=== PATIENT | female | born 1985 ===

== ENCOUNTER 2017-10-14 17:53 | Inpatient (IN) | payer SELFPAY ==
[2017-10-14] MEDS ORDERED: ceFAZolin 2 GM in Sodium Chloride 0.9% 100 ML IVPB ONE (20:22)
[2017-10-14] MEDS ORDERED: Lactated Ringer's 1,000 ML IV ONE (20:22)
[2017-10-14 20:52] LABS: BASO % 0.3 % (0.0-2.0); EOS % 0.4 % (0.0-4.0); HEMOGLOBIN 12.4 g/dL (11.0-16.0); LYMPH % 17.9 % (20.0-40.0); MEAN CELL VOLUME 90.1 fL (81.0-99.0); MEAN CORPUSCULAR HEMOGLOBIN 30.4 pg (27.0-31.0); MEAN CORPUSCULAR HGB CONC 33.7 g/dL (33.0-37.0); MEAN PLATELET VOLUME 10.8 fL (7.2-11.7); MONO # 0.8 K/uL (0.0-0.8); MONO % 7.4 % (0.0-10.0); NEUT # 8.4 K/uL (1.8-7.0); NRBC % 0.1 % (0.0-2.0); RBC 4.09 Mil/uL (3.80-5.20); RED CELL DISTRIBUTION WIDTH 13.9 % (11.5-14.5); WHITE BLOOD COUNT 11.3 K/uL (4.8-10.8)
[2017-10-14] MEDS ORDERED: Sodium Citrate/Citric Acid 15 ml Sol PO ONE (21:00)
[2017-10-14 21:02] LABS: SQUAMOUS EPITHIAL 5 /hpf (0-5); URINE BACTERIA RARE (<OCC); URINE BILIRUBIN NEGATIVE (NEGATIVE); URINE BLOOD NEGATIVE (NEGATIVE); URINE CLARITY Hazy (Clear); URINE COLOR Yellow (YELLOW); URINE GLUCOSE (UA) 3+ mg/dL (Normal); URINE LEUKOCYTE ESTERASE TRACE Leu/uL (Negative); URINE PROTEIN NEGATIVE (NEGATIVE); URINE UROBILINOGEN NORMAL mg/dL (0.2-1.0)
[2017-10-14] MEDS ORDERED: Sodium Citrate/Citric Acid 15 ml Sol ONE (21:59)
[2017-10-14] MEDS ORDERED: Morphine 1 mg/ml preservative-free Inj(Duramorph) ONE (22:09)
[2017-10-14] MEDS ORDERED: ePHEDrine 50 mg/ml Inj ONE (22:10)
--- NOTE | 2017-10-14 22:28 | OBHP ---
Datetime: 10/14/2017 18:30 IP Adm Impression: , intrauterine ; No Active Labor; Intact Membranes; Demise IP Admit Plan: Admit to unit; Initiate demise protocol Admit Comment, IP Provider: 32 yo female with an IUP at 34 weeks/ Hx of Previous C/S Sent from Clinic for admission after Dx'ed with Demise by an MFM US and report sent Pt and her state that she still feeling FM OB US ordered here and awaiting result + GDM and on Glyburide. FSBS on arrival 267 and admit to eating about 1 hr after arrival. Pelvic Type - PN: Adequate Extremities - PN: Normal Abdomen - PN: Normal Back - PN: Normal Breast - PN: Not Done Lungs - PN: Normal Heart - PN: Normal Thyroid - PN: Normal Neurologic - PN: Normal HEENT - PN: Normal General - PN: Normal Presentation-Admit: Vertex FHR - Baseline A Provider: 0 Membranes, Provider: Intact Contraction Comments Provider: None Gestation - Est Wks by US: 34.0 EGA AdmitDate IP: 34.4 Vital Signs Provider: Reviewed IP Chief Complaint: evaluation Dilatation, Provider: 0 Effacement, Provider: 0 Station, Provider: floating Genitourinary Exam: Normal DTRs - PN: Normal
[2017-10-14] MEDS ORDERED: Oxytocin 20 units in LR 2,000 ML IV ONE (22:31)
[2017-10-14] MEDS ORDERED: Midazolam 2 MG/2 ML VIAL ONE (23:01)
--- NOTE | 2017-10-14 23:56 | OBADHP ---
Datetime: 10/14/2017 21:44 IP Chief Complaint Other: Demise Admit Comment, IP Provider: Verified demise per US x 2 and parents again aware Demise at 34 weeks and no signs of labor Uncontrolled Gestational Diabetes Previous C/S x 1 and an unfavorable cervix. Risks of and repeat C/S fully reviewed with the patient and FOB and they requested a repeat C /S. Consent signed and will proceed with Repeat C/S Repeat FS BS on mother was 148. Pelvic Type - PN: Adequate Extremities - PN: Normal Abdomen - PN: Normal Back - PN: Normal Breast - PN: Not Done Lungs - PN: Normal Heart - PN: Normal Thyroid - PN: Normal Neurologic - PN: Normal HEENT - PN: Normal General - PN: Normal IP Fetus A Comments: demise confirmed by US and verbal report from Radiologist to myself Vital Signs Provider: Reviewed Genitourinary Exam: Normal DTRs - PN: Normal IP Adm Impression: , intrauterine IP Admit Plan: Admit to unit; Initiate demise protocol Datetime: 10/14/2017 18:30 Presentation-Admit: Vertex FHR - Baseline A Provider: 0 Membranes, Provider: Intact Contraction Comments Provider: None Gestation - Est Wks by US: 34.0 IP Chief Complaint: evaluation Dilatation, Provider: 0 Effacement, Provider: 0 Station, Provider: floating EGA AdmitDate IP: 34.4
--- NOTE | 2017-10-15 00:28 | OBDS ---
DELIVERY PERSONNEL Delivery Doctor: Dr Ray Alves Nurse: Karo Love OBT Shuttle Preparation Supervisor: Aimee Newton RN Anesthesiologist: Dr estrada MATERNAL INFORMATION Delivery Anesthesia: Spinal Medications in Delivery: pitocin 20 Estimated Blood Loss (ml): 600 Placenta Cultured: Yes Maternal Complications: Other Other Maternal Complications: demies Provider Comments: Repeat LTC C/S with delivery of a non-viable and partially emanciated male fetus without any obvious deformities. Apgars 0 and 0. FWt. 7lbs, 7oz Spinal Anesthesia EBL 500 mls Placenta to Pathology No complications Pt tolerated the procedure well and remained in S_S condition LABOR SUMMARY EDC: 11/21/2017 00:00 No. Babies in Womb: 1 Attempted: No Labor Anesthesia: None LABOR INFORMATION Reason for Induction: Demise Oxytocin: N/A Group B Beta Strep: Not Done Antibiotics # of Doses: 1 Antibiotics Time of Last Dose: 2200 Reason Steroids Not Administered: Not Applicable MEMBRANES Membranes Rupture Method: Artificial Rupture of Membranes: 10/14/2017 22:45 Length of Rupture (hrs): 0.07 Amniotic Fluid Color: Clear Amniotic Fluid Amount: Moderate Amniotic Fluid Odor: Normal STAGES OF LABOR Stage 3 hrs: 0 Stage 3 min: 1 VAGINAL DELIVERY Episiotomy: None Laceration Extension: N/A Laceration Type: None CSECTION DELIVERY Primary Indication: Prior C/S x1 Other Primary Indication: Demise at 34 weeks Secondary Indication: Uncontrolled Gestational Diabetes Other Secondary Indication: Unfavorable cervix.No S_S of labor CSection Urgency: Emergency CSection Incidence: Repeat Labor: No Labor Elective: Elective CSection Incision: Lower Uterine Transverse Uterine Closure: Single-layer closure BABY A INFORMATION Infant Delivery Date/Time: 10/14/2017 22:49 Method of Delivery: Born in Route : No : N/A Forceps: N/A Vacuum Extraction: N/A Shoulder Dystocia : No SHOULDER DYSTOCIA BABY A Delivery Date/Time: 10/14/2017 22:49 PRESENTATION/POSITION BABY A Presentation: Cephalic Cephalic Presentation: Vertex Breech Presentation: N/A PLACENTA INFORMATION BABY A Placenta Delivery Time : 10/14/2017 22:50 Placenta Method of Delivery: Expressed Placenta Status: Delivered INFORMATION BABY A Gestational Age at Delivery: 34.0 Gestational Status: Infant Outcome : Stillborn Sex: Male WEIGHT/LENGTH BABY A Birthweight (gms): 3380 Infant Weight (lb): 7 Weight (oz): 7 Infant Length Inches: 19.50 Length cms: 49.5
[2017-10-15] MEDS: Oxycodone/Acetaminophen 5/325 mg Tab PO PRN ×3 (06:48→22:47)
--- NOTE | 2017-10-15 08:15 | OBPPN ---
Datetime: 10/15/2017 08:14 PP Pain Prov: Within normal limits PP Nausea Prov: Denies PP Flatus Prov: No PP Abdomen/Uterus Prov: Normal PP Lochia Prov: Normal PP Extremities Prov: Normal PP Impression Prov: Normal progression PP Progress Note Prov: pt was seen at bed side, pin under cotrol,no n/v,tolerating,min lochia, no fl atus,waiting to wait pod#1 s/p c/s demise cbc reg deit cot post op care cont bj man sr. social media & mobile manager encurage ambultion Vital Signs Provider PP: Reviewed; Within Normal Limits
[2017-10-15 08:46] LABS: BASO % 0.2 % (0.0-2.0); EOS % 0.1 % (0.0-4.0); HEMOGLOBIN 12.4 g/dL (11.0-16.0); LYMPH # 1.3 K/uL (1.0-4.3); LYMPH % 10.4 % (20.0-40.0); MEAN CELL VOLUME 89.8 fL (81.0-99.0); MEAN CORPUSCULAR HEMOGLOBIN 30.3 pg (27.0-31.0); MEAN CORPUSCULAR HGB CONC 33.7 g/dL (33.0-37.0); MEAN PLATELET VOLUME 10.1 fL (7.2-11.7); MONO # 0.6 K/uL (0.0-0.8); MONO % 5.1 % (0.0-10.0); NEUT # 10.5 K/uL (1.8-7.0); NEUT % 84.2 % (50.0-75.0); NRBC % 0.1 % (0.0-2.0); RBC 4.11 Mil/uL (3.80-5.20); RED CELL DISTRIBUTION WIDTH 13.3 % (11.5-14.5); WHITE BLOOD COUNT 12.5 K/uL (4.8-10.8)
--- NOTE | 2017-10-15 09:23 | US ---
PROCEDURE: OB Pelvic Ultrasound HISTORY: Viability LMP: 02/14/2017 COMPARISON: None available. FINDINGS: UTERUS: Placenta: Posterior. Presentation: Cephalic. Amniotic fluid index: 21.7 cm BPD: 8.4 cm compatible with estimated gestational age of 34 weeks, 0 days. HC: 29.6 cm compatible with estimated gestational age of 32 weeks, 5 days. HC: 30.8 cm compatible with estimated gestational age of 34 weeks, 5 days. FL: 6.8 cm compatible with estimated gestational age of 34 weeks, 6 days. Heart rate: Not identified. Fluid is seen within the chest. age (Ultrasound estimated): 34 weeks, 1 day Jamee-gestational hemorrhage: None. Date of delivery (Ultrasound estimated) : 11/24/2017 CERVIX: Measures 3.3 cm. Long and closed. No cervical abnormality seen. FREE FLUID: None. OTHER FINDINGS: None. IMPRESSION: Single intrauterine gestation with average ultrasound age of 34 weeks, 1 day without cardiac activity compatible with nonviable gestation. Amniotic fluid is seen within the chest.
[2017-10-15] MEDS: Prenatal Multivit/Folic Acid/Iron Tab PO SCH (10:54)
[2017-10-16] MEDS ORDERED: Bisacodyl 5mg EC Tab PO ONE (00:23)
[2017-10-16 08:20] LABS: MEAN CELL VOLUME 90.6 fL (81.0-99.0); MEAN CORPUSCULAR HEMOGLOBIN 30.6 pg (27.0-31.0); MEAN CORPUSCULAR HGB CONC 33.8 g/dL (33.0-37.0); MEAN PLATELET VOLUME 10.8 fL (7.2-11.7); RBC 4.26 Mil/uL (3.80-5.20); RED CELL DISTRIBUTION WIDTH 13.6 % (11.5-14.5); WHITE BLOOD COUNT 14.1 K/uL (4.8-10.8)
[2017-10-16] MEDS: Prenatal Multivit/Folic Acid/Iron Tab PO SCH (10:23)
--- NOTE | 2017-10-16 14:23 | OBPPN ---
Datetime: 10/16/2017 14:14 PP Pain Prov: Within normal limits PP Nausea Prov: Denies PP Flatus Prov: Yes PP BM Prov: No PP Breasts Prov: Not Done PP Heart Prov: Normal PP Lungs Prov: Normal PP Abdomen/Uterus Prov: Normal PP Lochia Prov: Normal PP Vulva/Perineum Prov: Not Done PP CVA Tenderness Prov: Normal PP Extremities Prov: Normal PP C/S Incision Prov: Normal PP Progress Prov: Not Applicable PP Comments Phys Exam Prov: Breasts: mildy engorged Abdomen: Soft. Non distended. (+)BS. Incision with anastacia - clean, dry and intact. Fundus firm, mobile, mild and appropriately tender, 2 FB below umbilcius. Mild lochia rubra. Extremities: no calf tenderness, cyanosis or edema All other systems reviewed and are negative PP Plan Prov: Continue present management PP Progress Note Prov: Patient seen and evaluated at approximately 0839 hours: received in bed in ro om 462. Ambulating to bathroom; voiding without difficulty. Denies headaches, lightheadedness, dizzi ness. Denies nausea, vomiting. P.E.: as above. WD in NAD. Awake, alert, oriented to time, person and place. Pleasnt and cooperati ve - POD#1 H/H 13.0/38.6. Rh(+) Assessmenjt: POD#1, 32 y.o. P1101, S/P hysterotomy at 34 w 4d for IUFD; A2 GDM. Afebrile, vital s igns stable. Returning GI and functions. Patient is awaiting social work manager assistance - has questi ons re: disposition of her baby. Patient otherwise clinically stable. Plan: 1) Encourage ambulation in the hallways 2) Continue post operative care 3) Anticipate discharge home 10/17/17 Vital Signs Provider PP: Reviewed; Within Normal Limits
[2017-10-17 09:01] VITALS: BP 121/80; PULSE 98; RESP 18; O2SAT 99
--- NOTE | 2017-10-17 09:18 | OBDCSUM ---
Datetime: 10/17/2017 09:15 Discharged to, Provider: Home Follow up at, Provider: 1 weeks Disch Instr Activity: Normal activity; May be up to bathroom; May be up for meals; May Shower Disch Instr Diet: Regular Discharge Instructions, Provider: Routine instructions given Discharge Time: 10/17/2017 09:15 Disch Referrals: None Contraception discussed, Prov: Yes Disch Activity Restrictions: No exercising; No lifting; No driving Discharge Comment, Provider: S/P RLTCs @ 34 weeks for demise secondary to uncontrolled gestati onal DM. 1) Breast engorgement - ice packs 2) Pain continue motrin/percocet. 3) Pt requests discharge home Discharge Diagnosis Prov Other: IUFD @ 34 weeks uncontrolled Gestational DM.
[2017-10-17] MEDS: Prenatal Multivit/Folic Acid/Iron Tab PO SCH (09:34)
[2017-10-17 23:11] VITALS: TEMP 98
== END 2017-10-17 17:30 | disposition home or self-care (01) | DRG 765 ==
LOC: C.EROB 17:53 → C.4D 19:44 → C.4M 10-15 02:40
PROVIDERS: ADMIT Obstetrics & Gynecology; ATTEND Obstetrics & Gynecology
PROC: 10D00Z1 Extraction of Products of Conception, Low, Open Approach (ICD-10-PCS; principal; 2017-10-14)
DX: O24.429 Gestational diabetes mellitus in childbirth, unspecified control (principal); O36.4XX0 Maternal care for intrauterine death, not applicable or unspecified; Z3A.34 34 weeks gestation of pregnancy; Z37.1 Single stillbirth